=== PATIENT | female | born 1980 | race African-American/Black ===

== ENCOUNTER 2019-07-14 10:27 | Observation (INO) ==
[2019-07-14 11:17] LABS: BASO# 0.02 X1000 (0.0-0.2); BASO% 0.5 % (0.0-0.8); EOS# 0.12 X1000 (0.0-0.7); EOS% 3.1 % (0.0-10.0); HEMATOCRIT 17.5 % (37.0-47.0); IMM GRAN# 0.02 X1000 (0.0-0.04); IMM GRAN% 0.5 % (0.0-0.5); LYMPH# 1.29 X1000 (1.2-3.4); LYMPH% 32.8 % (20.5-51.1); MCHC 25.1 g/dL (33-37); MCV 59.5 FL (81-99); MONO# 0.33 X1000 (0.11-0.59); MONO% 8.4 % (1.7-9.3); NEUT# 2.15 X1000 (1.4-6.5); NEUT% 54.7 % (42.2-75.2); PLT 50 X1000 (130-400); RBC 2.94 XMIL (4.2-5.4); RDW 23.9 % (11.5-14.5); WBC 3.93 X1000 (4.8-10.8)
[2019-07-14 11:21] LABS: HEMOGLOBIN 4.4 g/dL (12.0-16.0)
--- NOTE | 2019-07-14 11:26 | PROVIDER DOCUMENTATION ---
This chart was entered by Denisse Kumar Scribe, acting as scribe for Chris Harper MD. HPI-General Adult - General Chief Complaint: Weakness Stated Complaint: NEEDS BLOOD Time Seen by Provider: 07/14/19 10:40 Source: patient, family (mother) Allergies/Adverse Reactions: Patient Allergies Allergy/AdvReac Type Severity Reaction Status Date / Time amoxicillin [Amoxicillin] Allergy Intermediate Unknown Verified 07/10/18 01:02 Penicillins Allergy Intermediate RASH Verified 07/10/18 01:02 Home Medications: Home Medication List Medication Instructions Recorded Confirmed Last Taken Type Ferrous Sulfate [Iron] 325 mg PO DAILY 04/05/16 07/10/18 04/04/16 15:00 History Clindamycin [Cleocin] 150 mg PO Q6HR #40 cap 07/10/18 Unknown Rx - History of Present Illness -Gen Adult Nature of Presenting Problems: 38 yobf presents to the ed with c/o hx of anemia and fatigue. pt sts "for a while" she has been tired and this is how she feels when her blood gets low. pt was told due to heavy menstrual cycles she needs to have a ablation done but pt refused tx due to fear of being put to sleep. pt sts has had x2 transfusions and the last one was in August 2018. pt on exam is nontoxic in appearance Location of Pain/Injury: reports: generalized (fatigue and weakness) Quality of Pain: reports: none Severity: reports: mild Onset/Duration: reports: gradual Timing: reports: still present Context/Activities at Onset: reports: light activity Modifying Factors: improves with: nothing Associated Symptoms: reports: fatigue, weakness. denies: back/neck pain, chest pain, fever/chills, shortness of breath Similar Symptoms Previously?: Yes (hx of anemia) Recently seen or treated by another doctor?: No Review of Systems - Adult - REVIEW OF SYSTEMS - ADULT Constitutional: reports: see HPIiman. denies: chills, fever Eyes: reports: no symptoms reported Ears, Nose, Mouth & Throat: reports: no symptoms reported Cardiovascular: denies: chest pain, palpitations, syncope Respiratory: denies: cough, shortness of breath, wheezing Gastrointestinal: denies: abdominal pain, diarrhea, nausea, vomiting Genitourinary: reports: no symptoms reported Musculoskeletal: reports: see HPI, muscle aches, other (fatigue and weakness) Integumentary: reports: no symptoms reported Neurological: denies: dizziness/vertigo, headache/migraines Psychiatric: reports: no symptoms reported Endocrine: reports: no symptoms reported Hematologic/Lymphatic: reports: see HPI, low blood count, transfusions Allergic/Immunologic: reports: no symptoms reported All Other Systems: Reviewed and Negative Past History - Adult - PAST MEDICAL HISTORY-ADULT Review of Records: reports: Old Records Reviewed, Nursing Assessment Review, Medications Reviewed, Social history reviewed & non-contributory. Major Childhood Illnesses: reports: denies history Cardiovascular: reports: denies history Respiratory: reports: denies history Gastrointestinal: reports: denies history Obstetrical/Gynecological: reports: denies history Genitourinary: reports: denies history Musculoskeletal: reports: denies history Hand Dominance: Right Handed Neurological: reports: denies history Psychiatric: reports: denies history Endocrine/Immune: reports: anemia Other Conditions: reports: denies history - PRIOR SURGERIES/PROCEDURES Surgical/Procedure History: reports: (X3), tonsillectomy - IMMUNIZATION STATUS Childhood Immunizations: See Nurse Assessment Flu Vaccine: See Nurse Assessment - FAMILY HISTORY Family History: reviewed, not pertinent - SOCIAL HISTORY Smoking: denies Substance Use: denies Living Situation: family Physical Exam-General - PHYSICAL EXAM-ADULT Initial Vital Signs Reviewed: Yes - CONSTITUTIONAL General Appearance: alert, no apparent distress, obese - EYES Eyes: PERRL/EOMI, pale conjunctivae (very pale) - HEAD, EARS, NOSE, MOUTH & THROAT HENMT: moist mucous membranes - NECK Neck: non-tender, full range of motion, supple, normal inspection - RESPIRATORY Respiratory: chest non-tender, lungs clear, normal breath sounds - CARDIOVASCULAR Cardiovascular: normal peripheral pulses, tachycardia (104) - CHEST (BREASTS) Chest/Breast: deferred - GASTROINTESTINAL (ABDOMEN) Abdominal Exam: normal bowel sounds, non tender, soft - LYMPHATIC Lymphatic: no adenopathy - MUSCULOSKELETAL Back Exam: normal inspection, no CVA tenderness, no vertebral tenderness Extremity: normal range of motion, non-tender, normal gait, normal inspection, no calf tenderness, normal capillary refill, pelvis stable - SKIN Integumentary: normal turgor, warm/dry - NEUROLOGIC Neurologic: grossly normal - PSYCHIATRIC Psych/Mental Status: normal mood/affect, normal thought content, normal thought process, oriented x 3 Progress - PLAN OF CARE/RESULTS Progress/Plan/Lab Results: Vital Signs - 8 hr 07/14/19 10:31 Temperature 98.0 F Pulse Rate 104 H Respiratory Rate 16 Blood Pressure 171/73 O2 Sat by Pulse Oximetry 100 Result Diagrams: 07/14/19 11:04 - REASSESSMENT Reassessment #1 Time Reassessed: 11:23 Status: unchanged (hgb 4.4. pt will ing to recieve transfusions and says will accept uterine ablation as needed) - CONSULTS/PCP/HOSPITALIST Notification #1 *Consult/PCP/Hospitalist*: kathy song md Time Discussed: 11:25 Consult Disposition: Admit Departure - Departure Date of Disposition Decision: 07/14/19 Time of Disposition Decision: 11:25 DIAGNOSIS: Iron deficiency anemia, Severe anemia Disposition: ADMITTED INPATIENT 09 Certified Medical Emergency: Emergent Condition: Stable Referrals and Follow-Ups: None,PCP [Primary Care Provider] - - Critical Care Note This patient required my direct & personal management of CC.: No Attestation - Physician/ NELLA Attestation Patient care was provided by Advanced Practice Provider:: No The physician spent face to face time with patient:: Yes Advanced Practice Provider documentation review:: Supervising physician onsite and consulted in the evaluation and care of this patient. The physician did have a face to face encounter with the patient. This chart was documented by the indicated scribe, (Denisse Kumar Scribe) and accurately reflects the services I performed and decisions made by me, Chris Harper MD, as attested by the provider's signature.
[2019-07-14 11:41] LABS: INR 1.06; PROTIME 14.3 Seconds (11.0-16.0); PTT 26.7 Seconds (22.3-41.8)
[2019-07-14 11:44] LABS: AGAP 11; BUN 8 mg/dL (8-22); CALCIUM 8.4 mg/dL (8.8-10.2); CHLORIDE 108 mmol/L (98-107); COSMO 277; CREATININE 0.8 mg/dL (0.5-0.9); ESTIMATED GFR > 60; GLUCOSE 123 mg/dL (70-104); POTASSIUM 3.7 mmol/L (3.5-5.1); SODIUM 139 mmol/L (136-145); TCO2 21 mmol/L (25-35)
--- NOTE | 2019-07-14 11:58 | EKG Report ---
Test Performed on : 07/14/2019 10:42:46 AM Test Reason : ER Blood Pressure : / mmHG Vent. Rate : 099 BPM Atrial Rate : 099 BPM P-R Int : 136 ms QRS Dur : 076 ms QT Int : 344 ms P-R-T Axes : 065 -05 027 degrees QTc Int : 441 ms Normal sinus rhythm. Normal ECG When compared with ECG of 03-MAR-2018 08:33, No significant change was found Unconfirmed Result
[2019-07-14] MEDS ORDERED: TYLENOL PO PRN ×2 (12:19→12:53)
[2019-07-14] MEDS ORDERED: ZOFRAN IV PRN ×2 (12:19→12:53)
[2019-07-14] MEDS ORDERED: TYLENOL PO ONE (12:19)
[2019-07-14] MEDS ORDERED: NS 500 ML IV ONE (12:19)
[2019-07-14] MEDS ORDERED: BENADRYL PO ONE (12:19)
--- NOTE | 2019-07-14 19:48 | HISTORY AND PHYSICAL ---
CHIEF COMPLAINT: 1. Generalized weakness. 2. History of anemia. HISTORY OF PRESENT ILLNESS: This is a 38-year-old female with a history of dysfunctional uterine bleeding with blood loss anemia and likely sickle cell trait. She presents to the emergency room complaining of being tired, and short of breath. She states that this is how she has felt in the past when her blood counts were low and she needed a transfusion. She was found to have a hemoglobin of 4.4, hematocrit of 17.5 with platelets of 50,000. As stated above, she does have a history of dysfunctional uterine bleeding and she was hospitalized in September 2017 and found to have an H H of 4.6 and 18.7. She was transfused with instructions to follow up with Hematology and Gynecology. She states that they have recommended her having ablation, but she is scared to be put to sleep, so she has refused so far. She reports her last transfusion was in August 2018. At that time she got 2 units of packed cells. PAST MEDICAL HISTORY: 1. Dysfunctional uterine bleeding. 2. Iron-deficiency anemia. 3. Blood loss anemia. 4. Likely sickle cell trait. PAST SURGICAL HISTORY: x3, tonsillectomy. SOCIAL HISTORY: She lives with her . Denies alcohol, tobacco, or illicit drug use. ALLERGIES: Amoxicillin and penicillin. HOME MEDICATIONS: A list will be obtained by the nursing staff and once verified and review we will restart as appropriate. REVIEW OF SYSTEMS: Discussed with patient with pertinent positives stated in the HPI. She denied any syncope, dizziness, any chest pain or palpitations, cough, fever, chills, night sweats, recent weight loss or weight gain, nausea, vomiting, diarrhea, constipation, black or bloody vomitus or stools, hematuria, dysuria, frequency or urgency. PHYSICAL EXAMINATION: GENERAL: This is a 38-year-old female who is sitting up on the stretcher in the emergency room in no distress. VITAL SIGNS: Blood pressure is 125/60 with heart rate of 81, respirations 16, temperature 98.3 degrees oral with room air saturations 100%. EYES: Pupils are equal, round, react to light. EOMs are intact sclerae anicteric. HEENT: Head is normocephalic, atraumatic. Mucous membranes are moist. NECK: Supple with trachea midline. No JVD. CARDIOVASCULAR: Regular rate and rhythm. S1 and S2 appreciated. No murmur. She is tachycardic. Calves are nontender bilateral. She has no peripheral edema with peripheral pulses palpable x4 extremities. PULMONARY: Breath sounds are clear. No increased work of breathing noted. Chest rises and falls symmetric respiration. GASTROINTESTINAL: Abdomen is soft, nontender, nondistended with bowel sounds in all 4 quadrants. GENITOURINARY: No CVA or suprapubic tenderness. NEUROLOGIC: She is alert oriented x3. SKIN: Warm and dry. LABS: WBC is 3.9, with hemoglobin 4.4, hematocrit 17.5, and platelets of 50,000. Sodium 139, potassium 3.7, BUN 8, creatinine 0.8 with a glucose of 123. ASSESSMENT AND PLAN: 1. Severe blood loss anemia. 2. Iron deficiency anemia. 3. History of dysfunctional uterine bleeding. 4. Likely sickle cell anemia. PLAN: 1. The patient will be admitted to the hospital. She will be placed on telemetry. She will be transfused 2 units of packed cells. We will repeat a CBC after and again in the morning. 2. History of dysfunctional uterine bleeding. Gynecology follow up to arrange for further treatments. 3. Likely sickle cell trait. She will need to follow up with Hematology. 4. Fatigue secondary to blood loss. We will transfuse. 5. For deep vein thrombosis prophylaxis we will use sequential compression devices. 6. For gastrointestinal prophylaxis Prilosec. Plan was discussed with Dr. Madrigal. Further treatments pending hospital course. Dictated by MARTHA Lopez for Angel Madrigal MD cc: MARTHA Lopez MD
[2019-07-14 21:24] LABS: PLT 20 X1000 (130-400)
[2019-07-14 21:25] LABS: BASO# 0.05 X1000 (0.0-0.2); BASO% 0.9 % (0.0-0.8); EOS# 0.26 X1000 (0.0-0.7); EOS% 4.6 % (0.0-10.0); HEMATOCRIT 22.1 % (37.0-47.0); IMM GRAN# 0.01 X1000 (0.0-0.04); IMM GRAN% 0.2 % (0.0-0.5); LYMPH# 1.78 X1000 (1.2-3.4); LYMPH% 31.6 % (20.5-51.1); MCH 17.9 PG (27-31); MCHC 27.1 g/dL (33-37); MCV 65.8 FL (81-99); MONO# 0.61 X1000 (0.11-0.59); MONO% 10.8 % (1.7-9.3); NEUT# 2.93 X1000 (1.4-6.5); NEUT% 51.9 % (42.2-75.2); RBC 3.36 XMIL (4.2-5.4); RDW 28.7 % (11.5-14.5); WBC 5.64 X1000 (4.8-10.8)
[2019-07-14] MEDS ORDERED: NS 500 ML IV SCH ×2 (22:30→22:45)
--- NOTE | 2019-07-14 23:36 | HISTORY AND PHYSICAL ---
ADDENDUM: Patient presented to the hospital fatigued, lightheaded. She has a known history of anemia due to dysfunctional uterine bleeding, but she did not follow up with CAREER PLACEMENT SERVICES COUNSELOR after discharge from the hospital the last time. Again, she presented to the hospital with heavy menstrual periods. Upon evaluation, her hemoglobin and hematocrit are low at 4 and 17. We are going to admit her to the hospital, type, cross, transfuse and recheck. I expect that she may need 3 units. I did discuss with her the importance of avoiding aspirin and anti-inflammatories. Discussed the importance of following up outpatient with CAREER PLACEMENT SERVICES COUNSELOR. cc: Angel Madrigal MD
[2019-07-15] MEDS ORDERED: BENADRYL PO ONE (01:12)
[2019-07-15 08:39] LABS: HEMATOCRIT 26.5 % (37.0-47.0); HEMOGLOBIN 7.6 g/dL (12.0-16.0); MCH 19.8 PG (27-31); MCHC 28.7 g/dL (33-37); MCV 69.2 FL (81-99); PLT 50 X1000 (130-400); RBC 3.83 XMIL (4.2-5.4); WBC 6.28 X1000 (4.8-10.8)
[2019-07-15 09:01] LABS: AGAP 9; ALBUMIN 4.2 g/dL (3.5-5.0); ALKALINE PHOSPHATASE 67 U/L (32-104); BUN 9 mg/dL (8-22); CALCIUM 8.6 mg/dL (8.8-10.2); CHLORIDE 107 mmol/L (98-107); COSMO 273; CREATININE 0.8 mg/dL (0.5-0.9); ESTIMATED GFR > 60; GLUCOSE 104 mg/dL (70-104); GOT 14 U/L (10-30); GPT 13 U/L (10-36); MAGNESIUM 1.9 mg/dL (1.5-2.7); POTASSIUM 4.2 mmol/L (3.5-5.1); SODIUM 137 mmol/L (136-145); TCO2 21 mmol/L (25-35); TOTAL PROTEIN 7.6 g/dL (6.3-8.3)
[2019-07-15 11:48] VITALS: BP 126/68
--- NOTE | 2019-07-16 19:30 | DISCHARGE SUMMARY ---
ADMISSION DATE: 07/14/2019 DISCHARGE DATE: 07/15/2019 ADDENDUM: Patient seen and examined by myself. Full note dictated and discussed with nurse practitioner. On discharge, patient is awake, alert, currently in no respiratory distress. H H and platelets both have improved, with platelets still low at 50. Certainly would prefer patient stay in the hospital and have consultation with Hematology. The patient declined, stating that she has no one to shrimp picker her child after school at 3 o'clock and she has to be discharged home. She was given 4 total units of blood as well as 2 units of platelets. H H are 8 and 26 on discharge, and platelets are at 50. Discussed with patient no Advil, Aleve, ibuprofen, aspirin, or alcohol. cc: Angel Madrigal MD
--- NOTE | 2019-07-16 22:13 | DISCHARGE SUMMARY ---
ADMISSION DATE: 07/14/2019 DISCHARGE DATE: 07/15/2019 DIAGNOSES: 1. Severe blood loss anemia. 2. Iron deficiency anemia. 3. History of dysfunctional uterine bleeding. 4. History of sickle cell trait. 5. Thrombocytopenia. DIAGNOSTICS: EKG revealed sinus rhythm at a rate of 99. HOSPITAL COURSE: Ms. Fuller presented to the emergency room complaining of generalized weakness. She was found to have a hemoglobin of 4.4, hematocrit of 17.5 and platelets of 50,000 for which she was transfused a total of 4 packed cells with a discharge hemoglobin and hematocrit of 7.6 and 26.5. Her platelets were 50,000 on admission, they dropped to 20,000. She was transfused 2 units of pheresis platelets and platelets came up to 50,000. In review of her past records she has had thrombocytopenia on 2 separate admissions, 1 was February 2013 with platelets of 122,000, the other was February 2018 with platelets of 116,000. She has a known history of dysfunctional uterine bleeding for which she followed up in the past with BOILER OR ENGINE OPERATOR. She stated they wanted to do an ablation and she did not will be put to sleep. Therefore she has not followed up in the last 5 years or so. Her last admission on our service was September 2017. We did recommend that she follow up with BOILER OR ENGINE OPERATOR, she stated that she opted not to. Once again she has been instructed to follow up with her banquet attendant. It was discussed with the patient the danger of her platelets being so low especially dropping down to 20,000 that she could have a spontaneous bleed that could ultimately lead to her . She stated that she was aware. We attempted to transfer the patient to [facility] for consult with Dr. Stein. The patient refused as her dropped her young child off at the hospital the morning of the to go to work and she had another child that was in school that no one will be able to package pick up in the afternoon. Therefore she was going to leave against medical advice. Therefore she refused to stay in the hospital at [facility] or to be transferred to [facility]. It was again reiterated to the patient the danger of having low platelets that this could ultimately lead in . She did state once again that she voiced understanding, although she had to take care of her children. DISCHARGE PHYSICAL EXAM: Vital Signs: Blood pressure 126/68 with a heart rate of 72, respirations 20, temperature 98.9 degrees with room air saturations 100%. Cardiovascular: Regular rate and rhythm. S1 and S2 appreciated. Pulmonary: Breath sounds clear. No increased work of breathing noted. Gastrointestinal: Abdomen soft, nontender, nondistended. Bowel sounds in all 4 quadrants. Neurologic: She is alert, oriented x3. Skin: Is warm and dry. DISCHARGE MEDICATIONS: None. FOLLOWUP: 1. Dr. Paco Stein. Appointment has been scheduled for 07/21/2019 at 10:30 a.m. The patient was instructed verbally as well as given written instructions. 2. Her banquet attendant. She is instructed to call them in the morning to set up an appointment for further evaluation and treatment. 3. She was instructed to call to be seen sooner or return to the ER for any syncope, dizziness, chest pain, palpitations, any shortness of breath, cough, fever, chills, any night sweats temperature greater than 101, any nausea, vomiting, diarrhea, black or bloody vomitus or stools, any hematuria, dysuria, frequency, urgency, any bleeding of her gums bruising, any hemoptysis, hematemesis or for any questions or concerns that she may have. She was discharged in stable condition. TIME SPENT: Greater than 30 minutes. Dictated by MARTHA Lopez for Angel Madrigal MD cc: MARTHA Lopez MD
== END 2019-07-15 14:10 | disposition home or self-care (01) ==
LOC: P.ED 10:27 → P.MEDSURG 10:27
PROVIDERS: ADMIT Family Medicine; ATTEND Family Medicine